=== PATIENT | female | born 1985 | race African-American/Black ===

== ENCOUNTER 2017-07-21 18:51 | Emergency (ER) | payer SELFPAY ==
[2017-07-21 19:32] VITALS: BP 131/95; PULSE 85; RESP 20; TEMP 98.5; O2SAT 100
--- NOTE | 2017-07-21 20:38 | PD ---
HPI Chief Complaint: Oral / Dental Pain or Problem Time Seen by Provider: 20:32 Travel History International Travel<30 days: No Contact w/Intl Traveler<30days: No Traveled to known affect area: No History of Present Illness HPI 32-year-old black female presents emergency department with a 2 day history of dental pain. She states that she has a tooth in her left lower mandible that has been breaking off for some time. In the last 2 days it has become increasingly painful. She states the pain radiates up into her left ear. No fever chills. No difficulty swallowing. Pain is moderate. No alleviating symptoms. Worsened by hot and cold. History Past Medical Histgory Medical History: Denies Significant Hx Tetanus Vaccination: < 5 Years ?: Not Social History Alcohol Use: No Tobacco Use: No Allergies-Medications (Allergen,Severity, Reaction): Coded Allergies: No Known Allergies (Unverified , 07/21/17) Review of Systems Except as stated in HPI: all other systems reviewed are Neg Physical Exam Narrative GENERAL: Well-developed, well-nourished in no acute distress. Nontoxic appearing. HEAD: Normocephalic, atraumatic. EYES: Pupils equal round and reactive. Extraocular motions intact. No scleral icterus. No injection or drainage. ENT: TMs clear without erythema. The external auditory canals clear. Nose: clear . Posterior pharynx is pink and moist. No tonsillar edema or exudate. Uvula midline. Airway patent. Patient is a dental carry in tooth #17 NECK: Trachea midline.Supple, nontender, moves head freely. No central bony tenderness or spasm. CARDIOVASCULAR: Regular rate and rhythm without murmurs, gallops, or rubs. RESPIRATORY: Clear to auscultation. Breath sounds equal bilaterally. No wheezes , rales, or rhonchi. GASTROINTESTINAL: Abdomen soft, non-tender, nondistended. No hepato-splenomegaly , or palpable masses. No guarding. EXTREMITIES: No clubbing, cyanosis, or edema. No joint tenderness, effusion, or edema noted. BACK: Nontender without deformity or crepitance. No flank tenderness. Data Data Last Documented VS Vital Signs Date Time Temp Pulse Resp B/P (MAP) Pulse Ox O2 Delivery O2 Flow Rate FiO2 07/21/17 19:32 98.5 85 20 131/95 (107) 100 MDM Medical Screen Exam Complete: Yes Emergency Medical Condition: No Differential Diagnosis MDM: Moderate Differential diagnoses: Dental abscess, dental caries, osteitis, cellulitis Narrative Course A medical screening exam was performed: At the time of evaluation the presenting medical condition was determined not to be of an emergent nature. The patient was given the option of receiving additional care, but declined. Patient was given options for additional community resources from which to obtain care. The Patient Has Been advised to seek medical attention for their presenting complaint. The patient has been advised to return to the ER at any time if an emergent condition develops. Primary Impression: Encounter for medical screening examination Chad Hdez Jul 21, 2017 20:38
== END 2017-07-21 20:55 | disposition left against medical advice (07) ==
LOC: NEPK 18:51
DX: K08.89 Other specified disorders of teeth and supporting structures (principal)
CPT/HCPCS: 99281

== ENCOUNTER 2017-07-29 19:49 | Emergency (ER) | payer MEDICAID ==
--- NOTE | 2017-07-29 20:45 | PD ---
HPI Chief Complaint Vaginal bleeding today brought in by ambulance Date Seen: Jul 29, 2017 Time Seen: 20:36 Travel History International Travel<30 Days: No Contact w/Intl Traveler<30Days: No Known Affected Area: No History of Present Illness HPI Patient is a 32-year-old black female he has had no care only a test in [place] 6 months ago who presents complaining of vaginal bleeding today like a period. She states that she moved from [place] 6 months ago and has not seen a doctor during that time. That she had a positive test and will and but no further follow-up Para: 2 : 4 History Obstetric History Obstetric History 2 vaginal deliveries 1 early loss Social History Alcohol Use: No Tobacco Use: No Substance Abuse: No Allergies-Medications (Allergen,Severity, Reaction): Coded Allergies: No Known Allergies (Unverified , 07/21/17) Review of Systems General / Constitutional: No: Fever, Weight Gain, Chills, Other Eyes: No: Diploplia, Blurred Vision, Visual changes, Pain, Photophobia HENT: No: Headaches, Vertigo, Lightheadedness Cardiovascular: No: Irregular Rhythm, Chest Pain or Discomfort, Palpitations, Tachycardia, Syncope, Varicosities, Edema, Cyanosis Respiratory: No: Cough, Short of Breath, Other Gastrointestinal: No: Nausea, Vomiting, Diarrhea Genitourinary: Vaginal Bleeding, No: Decreased Urinary Output, Oliguria Musculoskeletal: No: Limited ROM, Weakness, Cramping, Edema, Pain Skin: No Rash, No Itching, No Dryness, No Lumps, No Change in Pigmentation, No Change in Nails, No Alopecia, No Lesions Neurologic: No: Weakness, Dizziness, Syncope, Focal Abnormalities, Coordination Problem, Headache, Slurred Speech, Seizures Psychiatric: No: Depression, Suicidal Ideations, Homicidal Ideation Endocrine: No: Heat Intolerance, Cold Intolerance, Polydipsia, Polyuria, Other Physical Exam Narrative GENERAL: Well-nourished, obese patient. SKIN: Warm and dry. HEAD: Normocephalic and atraumatic. EYES: No scleral icterus. No injection or drainage. ENT: No nasal drainage noted. Mucous membranes pink. Airway patent. NECK: Supple, trachea midline. No JVD. CARDIOVASCULAR: Regular rate and rhythm without murmurs, gallops, or rubs. RESPIRATORY: Breath sounds equal bilaterally. No accessory muscle use. BREASTS: Bilateral exam showed no masses , no retractions, no nipple discharge. ABDOMEN/GI: Abdomen soft obese, non-tender, bowel sounds present, no rebound, no guarding GENITOURINARY: External Genitalia: intact and normal in appearance Speculum exam done-dark blood noted in the vagina cervix is closed Cervix: [-] Dilatation: [-Closed] Effacement: [-0] Uterus difficult to palpate due to obesity feels to be first trimester size FHT's:could not detect EXTREMITIES: No cyanosis or edema. BACK: Nontender without obvious deformity. No CVA tenderness. NEUROLOGICAL: Awake and alert. Motor and sensory grossly within normal limits. Five out of 5 muscle strength in all muscle groups. Normal speech. Data Data Orders Orders Ed Poc Ultrasound (07/29/17 20:21) Ed Urine Pregnancytest Poc (07/29/17 20:38) Labs Bedside ultrasound --abdominal ultrasound shows what appears to be a nongravid size uterus in the mid pelvis anteflexed, no adnexal masses or cysts preg test is negative MDM Interpretation(s) 32-year-old white female A2 who presented with vaginal bleeding and thought she was second trimester, however ultrasound shows a uterus of the mid pelvis no sign of there, test done here [place] is negative so this is likely just a anovulatory bleeding episode in the case of pseudocyesis. Patient is obese quite likely most of the time and if she is going without ovulating for significant amount of time the hyperestrogenic state can cause a feeling of being Plan Plan for the patient to be discharged to follow-up with a local physician family practice her [employer] Diagnosis Diagnosis: Primary Impression: Pseudocyesis Additional Impression: Anovulatory (dysfunctional uterine) bleeding Disposition: DISCHARGE HOME Condition: Stable Jose Valdez II, MD Jul 29, 2017 20:45
== END 2017-07-29 21:02 | disposition home or self-care (01) ==
LOC: HOBED 19:49
DX: F45.8 Other somatoform disorders (principal); N97.0 Female infertility associated with anovulation; N93.8 Other specified abnormal uterine and vaginal bleeding
CPT/HCPCS: 76815; 84703